=== PATIENT | female | born 1995 | race African-American/Black ===

== ENCOUNTER 2018-01-17 18:38 | Emergency (ER) | payer SELFPAY ==
[~2018-01-17] VITALS: Ht 160 cm; Wt 68.0 kg
[2018-01-17] MEDS ORDERED: ALBU8HFA4 INH (18:48)
--- NOTE | 2018-01-17 19:02 | NUR ---
RADIOLOGY AT BEDSIDE FOR XRAY.
--- NOTE | 2018-01-17 19:06 | NUR ---
REPORT TAKEN FROM DAY SHIFT RN. ASSUMING PT CARE AT THIS TIME.
--- NOTE | 2018-01-17 19:32 | NUR ---
Patient discharged to home in stable conditon. Written and verbal after care instructions given. Patient verbalizes understanding of instructions. Pt ambulated from ER w/ steady gait, denies pain on ambulation. No distress noted. Pt took all personal belongings
[2018-01-17 19:33] VITALS: BP 120/83
== END 2018-01-17 19:34 | disposition home or self-care (01) ==
LOC: ER 18:40
DX: S93.601A Unspecified sprain of right foot, initial encounter (principal); J45.909 Unspecified asthma, uncomplicated; F17.200 Nicotine dependence, unspecified, uncomplicated; X50.1XXA Overexertion from prolonged static or awkward postures, initial encounter; Y93.89 Activity, other specified; Y92.89 Other specified places as the place of occurrence of the external cause; Y99.8 Other external cause status
CPT/HCPCS: 73610; 73630; A4663